=== PATIENT | female | born 2000 | race Caucasian/White ===

== ENCOUNTER 2022-03-22 11:21 | Outpatient (CLI) | payer BC, SELFPAY ==
--- NOTE | 2022-03-22 11:45 | MR_ITS ---
WS: [id number] MRI HEAD WITH CONTRAST TECHNIQUE: Sagittal T1, T2 axial, T2 axial FLAIR, axial susceptibility weighted imaging, axial diffus ion weighted images, and coronal T2 images were obtained. Pre and post-T1 axial and post T1 coronal i mages. ADC and FSPGR images. CLINICAL INFORMATION: R56.9 - Unspecified convulsions COMPARISON: CT FINDINGS: No evidence of restricted diffusion to suggest acute ischemia. Ventricular system and basal cisterns are patent. Normal shelley-white differentiation. No extra-axial fluid collections. No evidence of mass or mass effect. No suspicious intracranial signal abnormalities. Congenital vermian atrophy unchanged since 2012. Somewhat shallow sella. Normal vascular flow voids at the skull base. No extra-axial fluid collections. Paranasal sinuses are well aerated. No hemosiderin on the susceptibility weighted images. Mild symmetric atrophy temporal lobes and hippocampal formations. No evidence of mesial temporal sclerosis. Normal optic chiasm and p ituitary infundibulum. Normal cavernous sinuses and Meckel's cave. No abnormal gadolinium enhancement. Normal visualized dural venous sinuses. MR/MR head wo/w con [id number] IMPRESSION: 1. No evidence of restricted diffusion to suggest acute ischemia. 2. No suspicious intracranial signal abnormalities. 3. No abnormal gadolinium enhancement. 4. No hemosiderin on the susceptibly weighted images. 5. Mild symmetric atrophy temporal lobes and hippocampal formations. No signal abnormalities in the mesial temporal lobes. 6. Congenital vermian atrophy unchanged since 2012.
[2022-03-22] MEDS: gadobenate dimeglumine 20 mL vial IV (12:31)
== END 2022-03-22 11:22 | disposition home or self-care (01) ==
PROVIDERS: PCP Clinical Nurse Specialist Adult Health; Visit Provider Specialist
DX: R56.9 Unspecified convulsions (principal); G31.89 Other specified degenerative diseases of nervous system
CPT/HCPCS: 70553; A9577